=== PATIENT | female | born 2005 | race African-American/Black ===

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

== ENCOUNTER 2024-02-04 10:56 | Emergency (ER) | payer OTHER ==
[2024-02-04] MEDS ORDERED: Acetaminophen 325 MG TAB ONE (11:48)
[2024-02-04 11:51] LABS: #Basophils Less than 0.03 10x3/uL (0.0-0.2); %Basophils 0.2 % (0.0-1.0); %Eosinophils 0.6 % (0.0-10.0); %Lymphocytes 17.6 % (28.0-48.0); %Monocytes 5.8 % (0.0-4.0); %Neutrophils 75.5 % (31.0-61.0); Hematocrit 36.6 % (36.0-47.0); Hemoglobin 12.3 g/dL (12.0-16.0); Mean Corpuscular HGB CONC 33.6 g/dL (32.0-36.0); Mean Corpuscular Hemoglobin 25.5 pg (25.0-35.0); Mean Corpuscular Volume 75.8 fL (78.0-98.0); Mean Platelet Volume 8.5 fL (7.4-10.4); Platelet Count 243 10x3/uL (130-400); RBC Distribution Width 12.6 % (11.5-14.5); Red Blood Cell (RBC) Count 4.83 mill/uL (4.00-5.20)
[2024-02-04 12:15] LABS: ALT (SGPT) 13 U/L (8-55); AST (SGOT) 10 U/L (5-30); Albumin 3.4 g/dL (3.5-5.0); Alkaline Phosphatase 53 U/L (40-100); Anion Gap 12 mmol/L (10-20); BUN (Urea Nitrogen) 10 mg/dL (8.4-21.0); Bilirubin, Total 0.2 mg/dL (0.2-1.2); Calc. Creatinine Clearance 0 mL/min (70-130); Calcium 8.9 mg/dL (7.8-10.44); Carbon Dioxide 21 mmol/L (22-29); Chloride 106 mmol/L (98-107); Estimated GFR 135; Globulin 3.5 g/dL (2.4-3.5); Glucose 167 mg/dL (70-105); Potassium 3.6 mmol/L (3.5-5.1); Protein, Total 6.9 g/dL (6.0-8.3); Sodium 135 mmol/L (136-145)
== END 2024-02-04 13:15 | disposition home or self-care (01) ==
LOC: ERS 10:56
DX: O9A.311 Physical abuse complicating pregnancy, first trimester (principal); O13.1 Gestational [pregnancy-induced] hypertension without significant proteinuria, first trimester; O99.331 Smoking (tobacco) complicating pregnancy, first trimester; Z3A.12 12 weeks gestation of pregnancy
CPT/HCPCS: 36415; 76856; 80053; 84702; 85025

== ENCOUNTER 2024-06-11 13:22 | Emergency (ER) | payer OTHER | END 2024-06-11 15:49 | disposition left against medical advice (07) | LOC: ERS 13:22 | DX: Z53.21 Procedure and treatment not carried out due to patient leaving prior to being seen by health care provider (principal) ==

== ENCOUNTER 2025-03-25 08:43 | Emergency (ER) | payer OTHER ==
[2025-03-25] MEDS ORDERED: Ibuprofen 800 MG TAB ONE (08:58)
== END 2025-03-25 09:14 | disposition home or self-care (01) ==
LOC: ERS 08:43
DX: T63.301A Toxic effect of unspecified spider venom, accidental (unintentional), initial encounter (principal); I10 Essential (primary) hypertension
CPT/HCPCS: 99282